=== PATIENT | female | born 1975 | race Caucasian/White ===

== ENCOUNTER 2020-07-05 17:47 | Emergency (ER) | payer OTHER ==
[~2020-07-05] VITALS: Ht 165.1 cm; Wt 97.7 kg
[2020-07-05] MEDS ORDERED: METH-38 PO (18:30)
--- NOTE | 2020-07-05 18:34 | PHYS DOC ---
Past History Past Medical History: Migraines (NAJMA HANSEN APRN) Past Surgical History: Other Additional Past Surgical Histo: MIGRAINES (NAJMA HANSEN APRN) Alcohol Use: Occasionally (NAJMA HANSEN APRN) Adult General Chief Complaint Chief Complaint: HEADACHE HPI HPI Patient is a 45-year-old female presents emergency department complaining of stiff neck that is now given her headache. Patient states she slept funny 2 nights ago and woke up with a stiff neck. Patient states she was seen in urgent care and was given a shot of Toradol and was sent home and was told to take muscle relaxers and informed neck exercises to stretch the muscles of her neck as well as use ice. Patient states that she has found no relief in pain, rates her pain a 10/10 on a 1-10 pain scale. Patient reports taking Wellbutrin, Zoloft, loratadine, and 2 other psychiatric medications at home. Patient reports a allergy to Vicodin and atorvastatin. Patient denies any nausea, vomiting, diarrhea, abdominal pain, chest pain, chest congestion, throat pain, ear pain. Patient states the neck pain is on the right side of her neck just behind her ear and radiates up into the side of her head which she turns her head a certain way. Patient denies visual disturbances. Patient denies numbness or tingling to her extremities. (NAJMA HANSEN APRN) Review of Systems Review of Systems 14 body systems of review of systems have been reviewed. See HPI for pertinent positives and negative responses, otherwise all other systems are negative, nonpertinent or noncontributory. (NAJMA HANSEN APRN) Allergies Allergies Allergies Coded Allergies Type Severity Reaction Last Updated Verified acetaminophen Allergy Unknown 07/05/20 Yes hydrocodone Allergy Unknown 07/05/20 Yes simvastatin Allergy Unknown 07/05/20 Yes (NAJMA HANSEN APRN) Physical Exam Physical Exam Constitutional: Well developed, well nourished, no acute distress, non-toxic appearance. 45-year-old female no apparent distress. HENT: Normocephalic, atraumatic, bilateral external ears normal, oropharynx moist, no oral exudates, nose normal. Oropharynx moist, pink, no infectious process appreciated, no lymphadenopathy of the head or neck appreciated. Eyes: PERRLA, EOMI, conjunctiva normal, no discharge. Neck: Normal range of motion, no tenderness, supple, no stridor. No C-spine tenderness, no meningismus signs, no nuchal rigidity appreciated. Cardiovascular:Heart rate regular rhythm, sounds S1-S2 to auscultation. Lungs & Thorax: Bilateral breath sounds clear to auscultation, no adventitious lung sounds appreciated. Abdomen: Bowel sounds normal, soft, no tenderness, no masses, no pulsatile masses. Skin: Warm, dry, no erythema, no rash. Back: No tenderness, no CVA tenderness. Extremities: No tenderness, no cyanosis, no clubbing, ROM intact, no edema. Neurologic: Alert and oriented X 3, normal motor function, normal sensory funct ion, no focal deficits noted. Psychologic: Affect normal, judgement normal, mood normal. (NAJMA HANSEN APRN) Current Patient Data Vital Signs Vital Signs Date Time Temp Pulse Resp B/P (MAP) Pulse Ox O2 Delivery O2 Flow Rate FiO2 07/05/20 18:02 96.3 89 16 136/101 (113) 97 Room Air (NAJMA HANSEN APRN) EKG EKG [] (NAJMA HANSEN APRN) Radiology/Procedures Radiology/Procedures [] (NAJMA HANSEN APRN) Heart Score C/O Chest Pain: No Risk Factors: Risk Factors: DM, Current or recent (<one month) smoker, HTN, HLP, family history of CAD, obesity. Risk Scores: Risk Factors: DM, Current or recent (<one month) smoker, HTN, HLP, family history of CAD, obesity. (NAJMA HANSEN APRN) Course & Med Decision Making Course & Med Decision Making Pertinent Labs and Imaging studies reviewed. (See chart for details) 45-year-old female, vital signs reviewed, presents to the emergency department complaining of ongoing neck stiffness and pain. Physical examination was consistent with cervical neck strain. There was no midline spinal tenderness. Patient did find relief when neck strain was palpated. Discussed with patient findings, will treat with IM Toradol today in the emergency department along wi th p.o. Robaxin and 1 5/325 mg Percocet. We will give a prescription for Robaxin at home. Patient will use [id number] Tylenol and Motrin for ongoing pain. Discussed with patient ice therapy versus warm moist heat therapy. Patient states she will follow up with her doctor for ongoing problems. Patient gave verbal understanding of discharge home instructions, prescription medication use, PCP follow-up, return to ER precautions, patient discharged home without incident. (NAJMA HANSEN APRN) Course & Med Decision Making Did not see or evaluate patient. Agree with ACCOUNT COORDINATOR's work-up and disposition per note. (JACQUELINE MENDES MD) Dragon Disclaimer Dragon Disclaimer This electronic medical record was generated, in whole or in part, using a voice recognition dictation system. (NAJMA HANSEN APRN) Departure Departure: Impression: Primary Impression: Acute strain of neck muscle Disposition: 01 DC HOME SELF CARE/HOMELESS Condition: GOOD Referrals: PCP,NO (PCP) Patient Instructions: Soft Tissue Injury of the Neck Additional Instructions: I am prescribing you a muscle relaxer called Robaxin, please take as directed, continue to use your ibuprofen and or Tylenol for pain and discomfort as well, we have discussed ice therapy versus moist heat therapy, follow-up with your doctor at [facility], Dr. Heather Garay if not improving over the next few days. Please return to the emergency department for worsening symptoms or other concerns. EMERGENCY DEPARTMENT GENERAL DISCHARGE INSTRUCTIONS Thank you for coming to [facility] (ED) today and trusting us with you care. We trust that you had a positivie experience in our Emergency Department. If you wish to speak to the department management, you may call the director at [phone]. YOUR FOLLOW UP INSTRUCTIONS ARE FOLLOWS: 1. Do you have a private Doctor? If you do not have a private doctor, please ask for a resource list of physicians or clinics that may be able to assist you with follow up care. 2. The Emergency Physician has interpreted your x-rays. The X-Ray specialist will also review them. If there is a change in the findings, you will be notified in 48 hours when at all possible. 3. A lab test or culture has been done, your results will be reviewed and you will be notified if you need a change in treatment. ADDITIONAL INSTRUCTIONS AND INFORMATION: 1. Your care today has been supervised by a physician who is specially trained in emergency care. Many problems require more than one evaluation for a complete diagnosis and treatment. We recommend that you schedule your follow up appointment as recommended to ensure complete treatment of you illness or injury. If you are unable to obtain follow up care and continue to have a problem, or if your condition worsens, we recommend that you return to the ED. 2. We are not able to safely determine your condition over the phone nor are we able to give sound medical advice over the phone. For these safety reasons, if you call for medical advice we will ask you to come to the ED for further evaluation. 3. If you have any questions regarding these discharge instructions please call the ED at [phone]. SAFETY INFORMATION: In the interest of safety, wellness, and injury prevention; we encourage you to wear your sealbelt, if you smoke; quite smoking, and we encourage family to use a protective helmet for bicycling and other sporting events that present an increased risk for head injury. IF YOUR SYMPTOMS WORSEN OR NEW SYMPTOMS DEVELOP, OR YOU HAVE CONCERNS ABOUT YOUR CONDITION; OR IF YOUR CONDITION WORSENS WHILE YOU ARE WAITING FOR YOUR FOLLOW UP APPOINTMENT; EITHER CONTACT YOUR PRIMARY CARE DOCTOR, THE PHYSICIAN WHOSE NAME AND NUMBER YOU WERE GIVEN, OR RETURN TO THE ED IMMEDIATELY. Scripts Methocarbamol (ROBAXIN-750) 750 Mg Tablet 1 TAB PO TID for MUSCLE PAIN for 10 Days, #30 TAB 0 Refills Prov: NAJMA HANSEN APRN 07/05/20 Problem Qualifiers Primary Impression: Acute strain of neck muscle Encounter type: initial encounter Qualified Codes: S16.1XXA - Strain of muscle, fascia and tendon at neck level, initial encounter NAJMA HANSEN APRN Jul 05, 2020 18:34 JACQUELINE MENDES MD Jul 05, 2020 19:18
[2020-07-05] MEDS ORDERED: oxyCODONE/APAP 5/325 1 TAB TABLET PO ONE (18:45)
[2020-07-05 18:56] VITALS: BP 116/97
[2020-07-05] MEDS ORDERED: METHOCARBAMOL 500 MG TABLET PO ONE (19:00)
[2020-07-05] MEDS ORDERED: KETOROLAC 60 MG/2 ML VIAL. IM ONE (19:00)
== END 2020-07-05 19:10 | disposition home or self-care (01) ==
LOC: ER 17:47
DX: S16.1XXA Strain of muscle, fascia and tendon at neck level, initial encounter (principal); G43.909 Migraine, unspecified, not intractable, without status migrainosus; Z88.5 Allergy status to narcotic agent; Z88.8 Allergy status to other drugs, medicaments and biological substances; X50.9XXA Other and unspecified overexertion or strenuous movements or postures, initial encounter; Y93.89 Activity, other specified; Y92.89 Other specified places as the place of occurrence of the external cause; Y99.8 Other external cause status
CPT/HCPCS: 96372; 99283; J1885